=== PATIENT | female | born 2000 | race Caucasian/White ===

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

== ENCOUNTER 2021-02-11 01:27 | Emergency (ER) | payer MEDICAID, SELFPAY ==
[2021-02-11 01:29] VITALS: BP 93/67; PULSE 91; RESP 18; TEMP 36.8; O2SAT 98; BMI 17.9
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
--- NOTE | 2021-02-11 01:43 | ED.RN ---
NO OLD EKGS IN MUSE
[2021-02-11 02:08] LABS: Absolute Lymphocyte Count 0.79 X10^3/uL (0.83-4.51); Absolute Neutrophil Count 11.5 X10^3/uL (2.0-7.7); Basophil# 0.05 X10^3/uL; Basophil% 0.4 % (0-1); Eosinophil# 0.01 X10^3/uL; Eosinophils% 0.1 % (0-5); Hematocrit 40.9 % (37-47); Hemoglobin 13.6 g/dL (12.0-15.0); Lymphocyte # 0.79 X10^3/ul (0.83-4.51); Lymphocyte % 5.9 % (19-41); Mean Corp Hgb Conc 33.3 g/dL (32-36); Mean Corpuscular Hgb 31.1 pg (27.0-32.0); Mean Corpuscular Volume 93.6 fL (81-99); Mean Platelet Vol. 10.4 fl (6.2-12.0); Monocyte# 0.73 X10^3/uL; Monocyte% 5.5 % (0-10); NRBC Flagged by Analyzer 0 % (0-5); Neutrophil # 11.53 X10^3/uL (2.7-7.7); Neutrophil % 86.5 % (47-70); Platelet Count 250 K/mm3 (150-450); RBC Distribution Width CV 11.8 % (11.6-14.6); RBC Distribution Width SD 40.3 fl (35.1-43.9); Red Blood Count 4.37 M/mm3 (4.2-5.4); White Blood Count 13.3 K/mm3 (4.4-11.0)
[2021-02-11] MEDS: Ondansetron 4 MG/2 ML Vial IV (02:11)
[2021-02-11] MEDS: fentaNYL 100 MCG/2 ML Ampul 25 MCG IV (02:12)
[2021-02-11 02:16] LABS: International Normalized Ratio 1.2; Prothrombin Time (Protime)PT. 14.8 SECONDS (11.7-14.9)
[2021-02-11 02:20] LABS: Internal QC Validated? YES +Cl - CLEAR BKGD; Pregnancy, Serum, hCG Quali. NEGATIVE Negative
[2021-02-11 02:22] LABS: Anion Gap 13 (5-15); BUN 7 mg/dL (7-18); BUN/Creat Ratio 11.1 RATIO (10-20); Calcium,Total 9.1 mg/dL (8.5-10.1); Chloride 107 mmol/L (98-107); Creatinine, Serum 0.63 mg/dL (0.55-1.02); EST Glomerular Filtration Rate 127 mL/min (>60); Est Glom Filt Rate - Afr Amer 154 mL/min (>60); Estimated Creatinine Clearance 100.07 ml/min; Glucose 108 mg/dL (74-106); Potassium 4.1 mmol/L (3.5-5.1); Sodium Level 137 mmol/L (136-145)
[2021-02-11 02:26] LABS: Alcohol, Blood (Medical)-Serum < 3.0 mg/dL
[2021-02-11] MEDS: oxyCODONE 5 MG Tablet PO (04:11)
[2021-02-11 04:16] VITALS: BP 115/57; PULSE 74; RESP 16; O2SAT 98
== END 2021-02-11 04:18 | disposition home or self-care (01) ==
PROVIDERS: Emergency Provider Student in an Organized Health Care Education/Training Program; PCP Nurse Practitioner Family
DX: S39.012A Strain of muscle, fascia and tendon of lower back, initial encounter (principal); S30.0XXA Contusion of lower back and pelvis, initial encounter; S00.83XA Contusion of other part of head, initial encounter; S50.12XA Contusion of left forearm, initial encounter; V40.6XXA Car passenger injured in collision with pedestrian or animal in traffic accident, initial encounter; Y93.9 Activity, unspecified; Y92.411 Interstate highway as the place of occurrence of the external cause; Y99.9 Unspecified external cause status
CPT/HCPCS: 70450; 70486; 71260; 72125; 74177; 80048; 82077; 84703; 85025; 85610; 93005; 96361; 96374; 96375; 99285; J7030; A4216; J2405